=== PATIENT | female | born 1950 | race African-American/Black ===

== ENCOUNTER 2022-06-09 10:15 | Emergency (ER) | payer OTHER ==
[2022-06-09] MEDS ORDERED: IBUPROFEN 400 MG TAB ONE (11:40)
[2022-06-09] MEDS ORDERED: HYDROCODONE/APAP 7.5/325 MG TAB ONE (11:40)
--- NOTE | 2022-06-09 12:21 | RAD REPORT ---
EXAM DESCRIPTION: RAD - Knee Left 3 View - 06/09/2022 12:10 pm CLINICAL HISTORY: PAIN COMPARISON: No comparisons FINDINGS: No fracture, dislocation or periosteal reaction.Moderate-sized joint effusion is present. Minimal degenerative spurs are seen along the articular margins of the patella. No significant joint space narrowing. In the medial tibial plateau there is a 2.5 centimeter a amorphous shaped area of peripherally sclero tic bone. More centrally within this lesion there is isodense to slightly hypodense tissue. No collap se or acute finding in the articular surface of the medial tibial plateau. An area of bone infarction is suspected. No soft tissue abnormality. 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 Clinical concerns for internal derangement, occult bony injury or need to further characterize the me dial tibial plateau lesion could be further assessed with scheduled outpatient MR imaging.
--- NOTE | 2022-06-09 12:23 | RAD REPORT ---
EXAM DESCRIPTION: US - Extremity Venous Uni Ltd - 06/09/2022 12:13 pm CLINICAL HISTORY: Pain COMPARISON: None. TECHNIQUE: Real-time sonographic evaluation of the left lower extremity deep venous system was perfo rmed. FINDINGS: Normal compressibility, flow augmentation, phasic flow and spontaneous flow are identified in the left lower extremity common femoral, superficial femoral, popliteal and posterior tibial vein s. No intraluminal filling defects seen. A large 5 x 4 x 2 cm popliteal fossa cyst is present. Cyst rupture or hemorrhage not identifiable. IMPRESSION: No DVT in the left lower extremity. Large 5 x 4 x 2 cm popliteal fossa cyst is identifiable without rupture or hemorrhage findings.
--- NOTE | 2022-06-09 13:41 | RAD REPORT ---
EXAM DESCRIPTION: CT - Knee Left Wo Con - 06/09/2022 1:10 pm CLINICAL HISTORY: pain, swelling, fall 3 days ago COMPARISON: Knee Left 3 View dated 06/09/2022 TECHNIQUE: Axial noncontrast 2 millimeter thick images of the left knee were obtained. Sagittal and coronal reformatted images were generated and reviewed. All CT scans are performed using dose optimization technique as appropriate and may include automate d exposure control or mA/KV adjustment according to patient size. FINDINGS: Moderate-sized joint effusion is present. No lipoma hemarthrosis findings. No calcified lo ose bodies identifiable. A 5 x 3 x 2 centimeter popliteal fossa cyst is present. Cyst rupture or hemo rrhage findings are not identifiable. No acute fracture is identifiable. No periosteal reaction seen. Medial compartment narrowing is prese nt. Medial and lateral compartment marginal spurs are present with spurring along the tibial spine. I n the medial tibial plateau there is a 2.5 centimeter sized bone lesion present. This shows an amorph ously shaped sclerotic rim with the central portion of the lesion similar in density to the trabecula of the tibia. This is subcortical in location with the overlying tibial plateau cortex intact. Small spurs are present along the articular margins of the patella. IMPRESSION: Moderate-sized knee joint effusion is present without fracture or acute bone finding audie ntifiable. Patient has knee joint degenerative changes present including a bone infarct in the medial tibial ari teau. Moderately large popliteal fossa cyst is present without cyst rupture or hemorrhage findings.
--- NOTE | 2022-06-09 14:17 | ER ---
Nurse's Notes [facility] Name: Rachid Arevalo Age: 72 yrs Sex: Female : 1950 Arrival Date: 06/09/2022 Time: 10:23 Bed 12 Private MD: Diagnosis: Effusion, left knee;Fall on same level, unspecified;Pain in left knee Presentation: 06/09 10:42 Chief complaint: Patient states: fall 3 days ago at home, fell to knees. Pt denies 5 blood thinners. Pt states her knees are swollen and hurting now and is uncomfortable to ambulate. Coronavirus screen: Vaccine status: Patient reports receiving the 2nd dose of the covid vaccine. Client denies travel out of the [place] in the last 14 days. Ebola Screen: Patient negative for fever greater than or equal to 101.5 degrees Fahrenheit, and additional compatible Ebola Virus Disease symptoms Patient denies exposure to infectious person. Patient denies travel to an Ebola-affected area in the 21 days before illness onset. Initial Sepsis Screen: Does the patient meet any 2 criteria? No. Patient's initial sepsis screen is negative. Does the patient have a suspected source of infection? No. Patient's initial sepsis screen is negative. Risk Assessment: Do you want to hurt yourself or someone else? Patient reports no desire to harm self or others. Onset of symptoms was June 06, 2022. 10:42 Method Of Arrival: Wheelchair [facility] 10:42 Acuity: CHUNG 3 [facility] Triage Assessment: 10:44 General: Appears in no apparent distress. obese, well groomed, well developed, Behavior [facility] is calm, cooperative, appropriate for age. Pain: Complains of pain in left knee. Historical: - Allergies: 10:44 No Known Allergies; jh5 - PMHx: 12:02 Hypertensive disorder; jl7 - Immunization history:: Adult Immunizations up to date. - Social history:: Smoking status: Patient reports the use of cigarette tobacco products, denies chronic smoking, but will smoke occasionally. Screenin:03 Abuse screen: Denies threats or abuse. Denies injuries from another. Nutritional jl7 screening: No deficits noted. Tuberculosis screening: No symptoms or risk factors identified. Fall Risk Fall in past 12 months (25 points). Total Cooper Fall Scale indicates No Risk (0-24 pts). Assessment: 12:03 General: Appears in no apparent distress. uncomfortable, Behavior is calm, cooperative, jl7 appropriate for age. Pain: Complains of pain in left knee Pain currently is 10 out of 10 on a pain scale. Neuro: Ambriz Agitation-Sedation Scale (RASS): 0 - Alert and Calm Level of Consciousness is awake, alert, obeys commands, Oriented to person, place, time, situation. Cardiovascular: Patient's skin is warm and dry. Respiratory: Airway is patent Respiratory effort is even, unlabored, Respiratory pattern is regular, symmetrical. Derm: Skin is pink, warm \T\ dry. Musculoskeletal: Swelling present in left knee. 13:00 Reassessment: Patient appears in no apparent distress at this time. Patient and/or hb family updated on plan of care and expected duration. Pain level reassessed. Patient is alert, oriented x 3, equal unlabored respirations, skin warm/dry/pink. 14:00 Reassessment: Patient appears in no apparent distress at this time. Patient and/or hb family updated on plan of care and expected duration. Pain level reassessed. Patient is alert, oriented x 3, equal unlabored respirations, skin warm/dry/pink. Vital Signs: 10:42 BP 171 / 81; Pulse 81; Resp 18; Temp 96.4; Pulse Ox 100% ; Weight 98.88 kg; Height 5 jh5 ft. 6 in. (167.64 cm); Pain 10/10; 10:42 Body Mass Index 35.19 (98.88 kg, 167.64 cm) 5 ED Course: 10:23 Patient arrived in ED. am2 10:42 Tavo Rene PA is PHCP. cp 10:42 Jake Weinstein MD is Attending Physician. cp 10:44 Triage completed. jh5 10:44 Arm band placed on right wrist. jh5 11:38 Marquis Darnell RN is Primary Nurse. jl7 12:03 Patient has correct armband on for positive identification. jl7 12:06 X-ray completed. Portable x-ray completed in exam room. Patient tolerated procedure mh1 well. 12:12 XRAY Knee LEFT 3 view In Process Unspecified. EDMS 12:15 US Extremity Venous Unilateral Ltd In Process Unspecified. EDMS 13:12 Knee Left Wo Con In Process Unspecified. EDMS 14:16 Chucky Garcia MD is Referral Physician. cp 14:45 No provider procedures requiring assistance completed. Patient did not have IV access hb during this emergency room visit. Administered Medications: 11:38 Drug: Ibuprofen 800 mg Route: PO; jl7 11:38 Drug: Hydrocodone-Acetaminophen (7.5 mg-325 mg) 1 tabs Route: PO; jl7 Medication: 12:03 VIS not applicable for this client. jl7 Outcome: 14:17 Discharge ordered by MD. cp 14:45 Discharged to home via wheelchair, with crutches. hb 14:45 Condition: stable 14:45 Discharge instructions given to patient, Instructed on discharge instructions, follow up and referral plans. medication usage, crutch walking, Demonstrated understanding of instructions, follow-up care, medications, Prescriptions given X 2. 14:46 Patient left the ED. hb Signatures: Dispatcher [employer] EDMS Waleska Guevara 1 Tavo Rene PA PA cp Violet Olivier, RN RN Marquis Darnell RN RN jl7 Dina Monique 2 Noemi Ley RN RN jh5
--- NOTE | 2022-06-09 14:18 | EDPHYS ---
Physician Documentation [facility] Name: Rachid Arevalo Age: 72 yrs Sex: Female : 1950 Arrival Date: 06/09/2022 Time: 10:23 Bed 12 Private MD: ED Physician Jake Weinstein HPI: 06/09 11:30 This 72 yrs old Black Female presents to ER via Wheelchair with complaints of Fall cp Injury, Ankle Injury, Knee Pain. 11:30 The patient presents with an injury, pain, that is acute, swelling, tenderness. The cp complaints affect the left knee. Context: The problem was sustained at a relative's home, resulted from trip and fall, the patient can fully bear weight, the patient is able to ambulate, with moderate difficulty, Problem is a result from a previous injury: No. 11:30 Onset: The symptoms/episode began/occurred 3 day(s) ago. cp 11:30 Associated signs and symptoms: The patient has no apparent associated signs or cp symptoms. Treatment prior to arrival includes: no previous treatment. Patient reports trip and fall 3 days ago with her landing onto knees. Reports increasing swelling and pain to left knee. Historical: - Allergies: 10:44 No Known Allergies; jh5 - PMHx: 12:02 Hypertensive disorder; jl7 - Immunization history:: Adult Immunizations up to date. - Social history:: Smoking status: Patient reports the use of cigarette tobacco products, denies chronic smoking, but will smoke occasionally. ROS: 11:35 MS/extremity: Positive for pain, swelling, tenderness, painful ROM. cp 11:35 Constitutional: Negative for body aches, chills, fever, poor PO intake. cp 11:35 Respiratory: Negative for cough, shortness of breath, wheezing. cp 11:35 Abdomen/GI: Negative for abdominal pain, nausea, vomiting, and diarrhea. 11:35 Eyes: Negative for injury, pain, redness, and discharge. cp 11:35 ENT: Negative for drainage from ear(s), ear pain, sore throat, difficulty swallowing, difficulty handling secretions. 11:35 Cardiovascular: Negative for chest pain, edema, palpitations. 11:35 Neuro: Negative for altered mental status, dizziness, headache, loss of consciousness, syncope, weakness. 11:35 All other systems are negative. Exam: 11:40 Constitutional: The patient appears in no acute distress, alert, awake, non-toxic, well cp developed, well nourished, uncomfortable. 11:40 Head/Face: Normocephalic, atraumatic. cp 11:40 Neck: ROM/movement: is normal, is supple, without pain, no range of motions limitations. 11:40 Chest/axilla: Inspection: normal. 11:40 Cardiovascular: Rate: normal. 11:40 Respiratory: the patient does not display signs of respiratory distress, Respirations: normal, no use of accessory muscles, no retractions, labored breathing, is not present. 11:40 Back: pain, is absent, ROM is normal. 11:40 Musculoskeletal/extremity: Extremities: noted in the left knee: swelling noted to anterior and medial and lateral left knee with tenderness to palpation. pain with passive flexion and extension of knee, ROM: full passive range of motion, in the left knee, Pulses: noted to be 2+ in the left dorsalis pedis artery, the left knee Sensation intact. 11:40 Neuro: Orientation: to person, place \T\ time. Mentation: is normal, Motor: moves all fours, strength is normal, Sensation: is normal. Vital Signs: 10:42 BP 171 / 81; Pulse 81; Resp 18; Temp 96.4; Pulse Ox 100% ; Weight 98.88 kg; Height 5 jh5 ft. 6 in. (167.64 cm); Pain 10/10; 10:42 Body Mass Index 35.19 (98.88 kg, 167.64 cm) jh5 Procedures: 14:30 Splinting: Splint applied to left knee using knee immobilizer, applied by nurse. cp Examined by me, post splint application: neurovascular intact, Patient tolerated well. MDM: 11:17 Patient medically screened. cp 12:00 Differential diagnosis: dislocation, closed fracture, contusion, ligament injury. cp 12:31 Physician consultation: Chucky Garcia MD was called at 12:32, regarding consult, cp patient's condition, left message on voicemail. 12:53 ED course: Consulted with Dr. Garcia, states finding more likely sclerotic lesion, rn states nothing to do acutely, treat as normally would for trauma, and ok to dc home with f/u.. 14:11 ED course: Spoke with patient regarding radiology results that showed knee joint cp effusion and concern for bone infarction of medial tibia plateau. Patient instructed on need for ortho f/u, remain non-weight bearing and knee immobilization. 14:17 Data reviewed: vital signs, nurses notes, radiologic studies, CT scan, plain films, I cp have discussed the patient's presentation/case with the attending Emergency Department Physician; and as a result, I will discharge patient. 14:17 Test interpretation: by ED physician or midlevel provider: plain radiologic studies. cp Counseling: I had a detailed discussion with the patient and/or guardian regarding: the historical points, exam findings, and any diagnostic results supporting the discharge/admit diagnosis, lab results, radiology results, the need for outpatient follow up, for definitive care, a orthopedic surgeon, to return to the emergency department if symptoms worsen or persist or if there are any questions or concerns that arise at home. 06/09 11:24 Order name: XRAY Knee LEFT 3 view; Complete Time: 12:23 cp 06/09 11:24 Order name: US Extremity Venous Unilateral Ltd; Complete Time: 12:23 cp 06/09 13:04 Order name: Knee Left Wo Con; Complete Time: 13:47 EDMS 06/09 12:53 Order name: Knee Immobilizer cp 06/09 14:14 Order name: Michael wrap-joint cp 06/09 14:14 Order name: Crutches cp Administered Medications: 11:38 Drug: Ibuprofen 800 mg Route: PO; jl7 11:38 Drug: Hydrocodone-Acetaminophen (7.5 mg-325 mg) 1 tabs Route: PO; jl7 Disposition Summary: 06/09/22 14:17 Discharge Ordered Location: Home cp Problem: new cp Symptoms: have improved cp Condition: Stable cp Diagnosis - Effusion, left knee cp - Fall on same level, unspecified cp - Pain in left knee cp Followup: cp - With: Chucky Garcia MD - When: 2 - 3 days - Reason: knee pain Discharge Instructions: - Discharge Summary Sheet cp - Knee Effusion cp - How to Use a Knee Immobilizer cp - Acute Knee Pain, Adult cp Forms: - Medication Reconciliation Form cp - Thank You Letter cp - Antibiotic Education cp - Prescription Opioid Use cp Prescriptions: - Diclofenac Sodium 75 mg Oral Tablet Sustained Release - take 1 tablet by ORAL route 2 times per day; 30 tablet; Refills: 0, Product cp Selection Permitted - Tylenol-Codeine #3 300 mg-30 mg Oral - take 2 tablet by ORAL route every 8-10 hours; 14 tablet; Refills: 0, Product cp Selection Permitted Addendum: 06/10/2022 19:47 Co-signature as Attending Physician, Jake Weinstein MD. r n Signatures: Dispatcher [employer] EDMS Jake Weinstein MD MD rn Tavo Rene, PA Marquis Mireles cp RN RN jl7 Noemi Ley RN RN jh5 Corrections: (The following items were deleted from the chart) 06/09 13:04 13:00 CT LEFT KNEE WO CONTRAST ordered. EDMD EDMS
[2022-06-09 14:54] VITALS: BP 171/81; TEMP 96.4; O2SAT 100
== END 2022-06-09 14:46 | disposition home or self-care (01) ==
LOC: ER 10:15
DX: M25.462 Effusion, left knee (principal); W18.30XA Fall on same level, unspecified, initial encounter; I10 Essential (primary) hypertension; F17.210 Nicotine dependence, cigarettes, uncomplicated
CPT/HCPCS: 73700; 93971; 99284